=== PATIENT | male | born 1985 | race Caucasian/White ===

== ENCOUNTER → 2020-07-01 | Outpatient (CLI) | payer OTHER ==
--- NOTE | 2020-07-01 14:45 | XR ---
EXAMINATION TYPE: XR ankle complete LT DATE OF EXAM: 07/01/2020 COMPARISON: NONE HISTORY: 34-year-old male left ankle pain, lateral swelling. TECHNIQUE: 3 views FINDINGS: Ankle mortise is congruent with preservation of the distal tibiofibular overlap. Talar dome is intact . There is degenerative spurring at the dorsal talonavicular joint and also suggestion of some joint space narrowing at the navicular cuneiform joint. No acute fracture, subluxation, or dislocation seen . IMPRESSION: Degenerative dorsal spurring at the talonavicular joint and suggestion of some degenerative joint spa ce narrowing at the navicular cuneiform joint. No acute osseous abnormality seen.
== END | disposition home or self-care (01) ==
LOC: RADXRMAIN 10:55
PROVIDERS: ATTEND Family Medicine
DX: M19.072 Primary osteoarthritis, left ankle and foot (principal)

== ENCOUNTER 2022-06-11 11:49 | Emergency (ER) | payer OTHER ==
[2022-06-11 12:45] VITALS: BP 156/105; PULSE 88; RESP 16; TEMP 97.8
[2022-06-11 14:04] LABS: Basophils # (A) 0.1 k/uL (0-0.2); Basophils % (A) 0 %; Eosinophils # (A) 0.1 k/uL (0-0.7); Eosinophils % (A) 1 %; HCT 52.1 % (39.0-53.0); HGB 17.8 gm/dL (13.0-17.5); Lymphocytes # (A) 1.3 k/uL (1.0-4.8); Lymphocytes % (A) 6 %; MCH 28.8 pg (25.0-35.0); MCHC 34.1 g/dL (31.0-37.0); MCV 84.4 fL (80.0-100.0); Mean Platelet Volume 6.7; Monocytes # (A) 0.9 k/uL (0-1.0); Monocytes % (A) 4 %; Neutrophils # (A) 17.4 k/uL (1.3-7.7); Neutrophils % (A) 88 %; Platelet Count 315 k/uL (150-450); RBC 6.18 m/uL (4.30-5.90); WBC 19.9 k/uL (3.8-10.6)
[2022-06-11 14:14] LABS: ALT 31 U/L (4-49); African American GFR (CKD) >90 (>60 ml/min/1.73 sqM); Albumin 5.2 g/dL (3.5-5.0); Amylase 57 U/L (30-110); Anion Gap 18 mmol/L; Blood Urea Nitrogen 20 mg/dL (9-20); Calcium 9.6 mg/dL (8.4-10.2); Carbon Dioxide 18 mmol/L (22-30); Chloride 99 mmol/L (98-107); Glucose 110 mg/dL (74-99); Lipase 124 U/L (23-300); Non-African American GFR(CKD) >90 (>60 ml/min/1.73 sqM); Sodium 135 mmol/L (137-145); Total Bilirubin 1.2 mg/dL (0.2-1.3)
[2022-06-11 14:15] LABS: AST 31 U/L (17-59); Alkaline Phosphatase 86 U/L (38-126); Potassium 4.3 mmol/L (3.5-5.1)
== END 2022-06-11 13:57 | disposition left against medical advice (07) ==
LOC: EC 11:49
DX: Z53.21 Procedure and treatment not carried out due to patient leaving prior to being seen by health care provider (principal)
CPT/HCPCS: 36415; 80053; 82150; 83690; 85025; 99499